=== PATIENT | female | born 1965 | race Caucasian/White ===

== ENCOUNTER → 2017-05-02 | Outpatient (CLI) | payer BC ==
[~2017-05-02] VITALS: Ht 162.6 cm; Wt 68.2 kg
[~2017-05-02] MED LIST: CEFTIN 250250 MG/TAB PO; CLONIDINE0.1 MG PO; CYMBALTA60 MG PO; DESYREL 50MG50 MG PO; LAMICTAL 100MG100 MG PO; LYRICA 75MG CAP75 MG PO; NORCO 325 MG-7.1 TAB PO; OXY IR5 MG PO; OXYCODONE30 MG PO; PREMARIN 0.60.625 M1 PO; SOMA 350MG350 MG/TAB PO; XANAX 0.5MG0.5 MG PO; ZANTAC 150MG T150 MG PO
[2017-05-02 06:53] VITALS: BP 120/80; PULSE 63
[2017-05-02 08:19] VITALS: BP 116/81; PULSE 65
== END ==
LOC: COL.RAD 06:29
DX: M54.5 Low back pain (principal); M51.36 Other intervertebral disc degeneration, lumbar region
CPT/HCPCS: J3301

== ENCOUNTER → 2017-10-29 | Outpatient (CLI) | payer BC | LOC: MC.RAD 13:13 | DX: Z12.31 Encounter for screening mammogram for malignant neoplasm of breast (principal) ==

== ENCOUNTER → 2017-12-25 | Outpatient (CLI) | payer BC ==
[~2017-12-25] VITALS: Ht 162.6 cm; Wt 65.9 kg
[2017-12-25 08:54] VITALS: BP 116/66; PULSE 74
[2017-12-25 09:30] VITALS: BP 117/80; PULSE 79
== END ==
LOC: COL.RAD 08:34
DX: M51.36 Other intervertebral disc degeneration, lumbar region (principal)
CPT/HCPCS: J3301

== ENCOUNTER → 2019-01-08 | Outpatient (CLI) | payer BC | LOC: MC.RAD 12-15 14:15 | DX: Z12.31 Encounter for screening mammogram for malignant neoplasm of breast (principal) ==

== ENCOUNTER → 2019-03-18 | Outpatient (CLI) | payer BC ==
[~2019-03-18] VITALS: Ht 162.6 cm; Wt 67.3 kg
[~2019-03-18] MED LIST changes: +BRINTELLIX5 PO
[2019-03-18 12:04] VITALS: BP 148/82; PULSE 78
--- NOTE | 2019-03-18 12:07 | NUR ---
PAIN STATES THE PAIN TO THE RIGHT HIP AND BUTTOCK AREA IS 2-3/10, IT HAS BEEN LIKE A 7-8/10. TOES NUMB AND THE SHARP STABBING PAINS DOWN THE LEG, RIGHT
[2019-03-18 13:41] VITALS: BP 125/78; PULSE 69
--- NOTE | 2019-03-18 14:01 | NUR ---
PT IS TAKEN DOWN TO POV WITH PT'S TO POV
== END ==
LOC: COL.RAD 03-13 07:00
DX: M51.16 Intervertebral disc disorders with radiculopathy, lumbar region (principal)
CPT/HCPCS: J3301

== ENCOUNTER → 2020-04-06 | Outpatient (CLI) | payer BC | LOC: MC.RAD 14:51 | DX: Z12.31 Encounter for screening mammogram for malignant neoplasm of breast (principal) ==

== ENCOUNTER → 2021-05-02 | Outpatient (CLI) | payer BC ==
[~2021-05-02] MED LIST changes: +AMOXICILLIN 50500 MG PO; +DOXYCYCLINE 10100 MG PO; +PERCOCET 325 MG1 TA3 PO
== END ==
LOC: MC.RAD 12:48
DX: Z12.31 Encounter for screening mammogram for malignant neoplasm of breast (principal); Z80.3 Family history of malignant neoplasm of breast

== ENCOUNTER 2021-08-13 17:27 | Emergency (ER) | payer BC ==
[~2021-08-13] VITALS: Ht 160 cm; Wt 68.2 kg
[~2021-08-13 17:27] MED LIST changes: -AMOXICILLIN 50500 MG PO; -DOXYCYCLINE 10100 MG PO; -PERCOCET 325 MG1 TA3 PO
[2021-08-13 17:33] VITALS: TEMP 99.1
[2021-08-13 18:26] LABS: TRICYCLIC ANTIDEPRESS URINE NEGATIVE
[2021-08-13 19:36] LABS: BASO % 0.1 % (0.0-2.0); EOS % 0.2 % (0-4.0); GRAN # 9.1 K/mm3 (1.4-6.5); GRAN % 85.3 % (42.2-75.2); HEMATOCRIT 30.3 % (37.0-47.0); HEMOGLOBIN 10.3 g/dl (12.5-16.0); LYMPH % 9.3 % (20.0-51.0); MEAN CELL VOLUME 93 fl (80.0-100.0); MEAN CORPUSCULAR HEMOGLOBIN 32 pg (27.0-31.0); MEAN CORPUSCULAR HGB CONC 34 g/dl (33.0-37.0); MEAN PLATELET VOLUME 9.1 fl (7.4-10.4); MONO # 0.5 K/mm3 (0.1-0.6); MONO % 4.5 % (1.7-9.3); PLATELET COUNT 307 K/mm3 (130-400); RED BLOOD COUNT 3.25 M/mm3 (4.10-5.30); REDCELL DISTRIBUTION WIDTH-CV 12.9 % (11.5-14.5)
[2021-08-13 19:53] LABS: ALBUMIN 3.3 gm/dL (3.5-5.0); BILIRUBIN,TOTAL 0.7 mg/dL (0.2-1.2); CALCIUM 9.6 mg/dL (8.4-10.2); CREATININE, serum 0.7 mg/dL (0.57-1.11); TOTAL PROTEIN 6.6 gm/dL (6.2-8.1)
[2021-08-13 19:57] LABS: POTASSIUM 4.3 mmol/L (3.5-4.5)
[2021-08-13] MEDS ORDERED: DOXYCYCLINE 10100 MG PO (22:21)
[2021-08-13] MEDS ORDERED: AMOXICILLIN 50500 MG PO (22:23)
[2021-08-13] MEDS ORDERED: PERCOCET 325 MG1 TA3 PO (22:50)
[2021-08-13 22:57] VITALS: BP 148/75; PULSE 90
[2021-09-21] MEDS ORDERED: FOSAMAX 70MG TA70 MG PO (15:49)
== END 2021-08-13 22:57 | disposition home or self-care (01) ==
LOC: COL.ER 17:27
PROVIDERS: Physician Assistant
DX: S22.42XA Multiple fractures of ribs, left side, initial encounter for closed fracture (principal); J18.9 Pneumonia, unspecified organism; X50.1XXA Overexertion from prolonged static or awkward postures, initial encounter
CPT/HCPCS: J0696; J1170; J1885; J2360; J3010

== ENCOUNTER → 2021-09-26 | Outpatient (CLI) | payer BC ==
[~2021-09-26] MED LIST changes: +AMOXICILLIN 50500 MG PO; +DOXYCYCLINE 10100 MG PO; +FOSAMAX 70MG TA70 MG PO; +PERCOCET 325 MG1 TA3 PO
[2021-09-26 07:32] VITALS: BP 155/84; PULSE 74; TEMP 98.3
[2021-09-26 08:08] VITALS: BP 151/80; PULSE 67
== END ==
LOC: COL.RAD 06:58
DX: M51.36 Other intervertebral disc degeneration, lumbar region (principal)
CPT/HCPCS: J3301

== ENCOUNTER → 2021-11-30 | Outpatient (CLI) | payer BC | LOC: COL.RAD 10:57 | DX: S32.501A Unspecified fracture of right pubis, initial encounter for closed fracture (principal) ==

== ENCOUNTER 2022-01-03 14:47 | Outpatient (RCR) | payer BC ==
[~2022-01-03] VITALS: Ht 160 cm; Wt 66.2 kg
[2022-01-03 15:37] VITALS: BP 139/84; PULSE 75; TEMP 99
== END 2022-01-03 17:43 ==
LOC: EUO 14:47
DX: M81.0 Age-related osteoporosis without current pathological fracture (principal)
CPT/HCPCS: J3111

== ENCOUNTER 2022-03-07 14:30 | Outpatient (RCR) | payer BC ==
[~2022-03-07] VITALS: Ht 160 cm; Wt 67.7 kg
[2022-03-07 14:52] VITALS: BP 112/63; PULSE 71; TEMP 97.8
== END 2022-03-07 15:10 ==
LOC: EUO 14:30
DX: M81.0 Age-related osteoporosis without current pathological fracture (principal)
CPT/HCPCS: J3111

== ENCOUNTER 2022-04-04 13:43 | Outpatient (CLI) | payer BC | END 2022-04-04 14:04 | LOC: EUO 13:43 | DX: M81.0 Age-related osteoporosis without current pathological fracture (principal) | CPT/HCPCS: J3111 ==

== ENCOUNTER 2022-05-02 14:36 | Outpatient (RCR) | payer BC ==
[2022-05-02 15:18] VITALS: BP 109/78; PULSE 90; TEMP 99.3
== END 2022-05-02 15:20 ==
LOC: EUO 14:36
DX: M81.0 Age-related osteoporosis without current pathological fracture (principal)
CPT/HCPCS: J3111

== ENCOUNTER 2022-05-30 14:34 | Outpatient (RCR) | payer BC ==
[2022-05-30 15:16] VITALS: BP 122/50; PULSE 75; TEMP 98
== END 2022-05-30 16:00 | disposition home or self-care (01) ==
LOC: EUO 14:34
DX: M81.0 Age-related osteoporosis without current pathological fracture (principal)
CPT/HCPCS: J3111

== ENCOUNTER 2022-06-27 13:24 | Outpatient (CLI) | payer BC ==
[2022-06-27 14:06] VITALS: BP 127/49; PULSE 73; TEMP 97.9
== END 2022-06-27 19:27 | disposition home or self-care (01) ==
LOC: EUO 13:24
DX: M81.0 Age-related osteoporosis without current pathological fracture (principal)
CPT/HCPCS: J3111

== ENCOUNTER → 2022-07-03 | Outpatient (CLI) | payer BC | LOC: MC.RAD 11:30 | DX: Z12.31 Encounter for screening mammogram for malignant neoplasm of breast (principal) ==

== ENCOUNTER 2022-08-27 14:47 | Outpatient (RCR) | payer BC ==
[~2022-08-27] VITALS: Ht 160 cm; Wt 70.3 kg
[2022-08-27 15:19] VITALS: BP 132/77; PULSE 83; TEMP 98.1
== END 2022-08-27 15:58 | disposition home or self-care (01) ==
LOC: EUO 14:47
DX: M81.0 Age-related osteoporosis without current pathological fracture (principal)
CPT/HCPCS: J3111

== ENCOUNTER 2022-11-27 13:59 | Outpatient (CLI) | payer BC ==
[~2022-11-27] VITALS: Ht 160 cm; Wt 69.9 kg
[2022-11-27 14:17] VITALS: BP 105/67; PULSE 70; TEMP 98.1
== END 2022-11-27 14:28 | disposition home or self-care (01) ==
LOC: EUO 13:59
DX: M81.0 Age-related osteoporosis without current pathological fracture (principal)
CPT/HCPCS: J3111

== ENCOUNTER 2023-10-30 15:14 | Outpatient (CLI) | payer BC ==
[~2023-10-30] VITALS: Ht 160 cm; Wt 71.4 kg
[2023-10-30 15:33] VITALS: BP 125/72; PULSE 63; TEMP 97.8
[2023-10-30] MEDS ORDERED: Denosumab 60 MG/ML SYRINGE SQ ONE (15:45)
== END 2023-10-30 15:45 ==
LOC: EUO 15:14 → MC.RAD 15:30 → EUO 15:45
DX: M80.00XG Age-related osteoporosis with current pathological fracture, unspecified site, subsequent encounter for fracture with delayed healing (principal)
CPT/HCPCS: J0897